=== PATIENT | male | born 1955 | race Caucasian/White ===

== ENCOUNTER → 2016-07-04 | Outpatient (CLI) | payer BC | END | disposition short-term general hospital (02) | LOC: CLVASC 13:16 | DX: Z48.812 Encounter for surgical aftercare following surgery on the circulatory system (principal); Z95.828 Presence of other vascular implants and grafts ==

== ENCOUNTER 2016-08-27 12:58 | Day surgery (SDC) | payer BC | END 2016-08-27 14:15 | disposition short-term general hospital (02) | LOC: SURGOP 12:58 | PROC: 0TJB8ZZ Inspection of Bladder, Via Natural or Artificial Opening Endoscopic (ICD-10-PCS; principal; 2016-08-27) | DX: N40.0 Benign prostatic hyperplasia without lower urinary tract symptoms (principal); Z85.51 Personal history of malignant neoplasm of bladder ==